=== PATIENT | female | born 1985 | race Caucasian/White ===

== ENCOUNTER 2020-03-31 16:45 | Emergency (ER) | payer BC, SELFPAY ==
--- NOTE | 2020-03-31 16:53 | ED.EXTPRO ---
HPI - Extremity Problem General Chief complaint: Extremity Problem,Nontraumatic Stated complaint: L/arm swollen Time Seen by Provider: 03/31/20 16:55 Source: patient and RN notes reviewed Mode of arrival: ambulatory Limitations: no limitations History of Present Illness HPI Narrative: 34 female presents with concern for pain to the left wrist, lower forearm with a small area of swelling. She denies injury, trauma. Denies any history of injury to that extremity. 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 Reports the pain worsens with touching the first and second digits together and other finger movement. She denies any intervention. She denies any bruising, redness, warmth, open skin MD Complaint: extremity pain Related Data Home Medications Medication Instructions Recorded Confirmed pantoprazole 20 mg PO DAILY 03/31/20 03/31/20 Allergies Allergy/AdvReac Type Severity Reaction Status Date / Time levofloxacin Allergy Intermediate rash Verified 03/22/19 18:04 Review of Systems Review of Systems: Narrative: CONSTITUTIONAL: Denies malaise, chills, sweats, or fever. CARDIOVASCULAR: Denies chest pain, palpitations, o RESPIRATORY: Denies cough or dyspnea. SKIN: Denies lacerations, abrasions rash or itching. MUSCULOSKELETAL: Reports left wrist and lower forearm pain with a small area of swelling NEUROLOGIC: Denies numbness, weakness All systems reviewed & are unremarkable except as noted in HPI and below PMFSH Social History Social History Gender identity (if verbalized by the patient): Female Comments At time of signature, agree with nursing past medical, surgical, social and family history. There is no relevant family history pertinent to the presenting complaint Exam Narrative: Exam Narrative: GENERAL: Well-appearing, well-nourished, and in no acute distress. HEAD: Normocephalic, atraumatic. EYES: PERRLA, conjunctivae clear NECK: Supple. CHEST: Speaks in full sentences. No respiratory distress. HEART: Regular rate and rhythm. Normal and equal peripheral pulses. EXTREMITIES: Left wrist, hand, digits of hand have normal strength and sensation, normal range of motion. Superficial edema without induration, erythema noted to the left lower forearm approximately 6 cm x 4 cm, tender to touch, no erythema or ecchymosis. 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 Normal sensation with sensitivity to light touch and pain. No open wounds, no skin tenting, no devitalized tissue or atrophy, no trophic changes, no obvious deformity, alignment normal, no point tenderness, nearby joints and structures intact. Distal pulses palpable and equal bilaterally, skin warm, dry, pink. Capillary refill less than 3 seconds. SKIN: Warm, dry, no rash. NEURO: Alert and oriented x3. PSYCH: Normal mood and affect Course Course Emergency Course: Patient is aware of diagnosis, understands and agrees to treatment plan. Anticipatory guidance given. Patient agrees to follow-up as directed and is aware of reasons to seek care at the emergency department. Portions of this record may have been created with voice recognition software Vital Signs Vital signs: Vital Signs Temperature 97.6 F 03/31/20 16:55 Pulse Rate 78 03/31/20 16:55 Respiratory Rate 03/31/20 16:55 Blood Pressure 116/65 03/31/20 16:55 Pulse Oximetry 99 03/31/20 16:55 Temperature 97.6 F 03/31/20 16:55 Pulse Rate 78 03/31/20 16:55 Respiratory Rate 03/31/20 16:55 Blood Pressure 116/65 03/31/20 16:55 Pulse Oximetry 99 03/31/20 16:55 Reviewed. MDM - Extremity (Nontraumatic) MDM Narrative Medical decision making narrative: Patients pain is consistent with musculoskeletal etiology. No signs of neurological or vascular compromise on exam. Compartments and tissues are soft without signs of compartment syndrome. Pain is felt appropriate for further evaluation on an outpatient
[2020-03-31 16:55] VITALS: BP 116/65; PULSE 78; RESP 20; TEMP 36.4; O2SAT 99
== END 2020-03-31 17:10 | disposition home or self-care (01) ==
PROVIDERS: Emergency Provider Nurse Practitioner; PCP Registered Nurse
DX: M77.9 Enthesopathy, unspecified (principal); K21.9 Gastro-esophageal reflux disease without esophagitis
CPT/HCPCS: 99213; G0463

== ENCOUNTER 2020-04-13 10:51 | Emergency (ER) | payer OTHER, BC, SELFPAY ==
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
[2020-04-13 11:06] VITALS: BP 89/43; PULSE 77; RESP 18; TEMP 36.3; O2SAT 100
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
[2020-04-13] MEDS: KETOROLAC (*BKC) 60 MG/2 ML VIAL IM (11:40)
[2020-04-13 13:10] VITALS: BP 132/75; PULSE 70; RESP 16; O2SAT 100
[2020-04-13 14:35] VITALS: BP 130/82; PULSE 70; RESP 16; O2SAT 99
== END 2020-04-13 14:30 | disposition home or self-care (01) ==
PROVIDERS: Emergency Provider Emergency Medicine; PCP Registered Nurse
DX: S16.1XXA Strain of muscle, fascia and tendon at neck level, initial encounter (principal); F17.290 Nicotine dependence, other tobacco product, uncomplicated; M47.816 Spondylosis without myelopathy or radiculopathy, lumbar region; V49.40XA Driver injured in collision with unspecified motor vehicles in traffic accident, initial encounter
CPT/HCPCS: 72125; 72128; 72131; 81025; 96372; 99284; J1885

== ENCOUNTER 2020-04-30 13:38 | Outpatient (CLI) | payer BC, SELFPAY ==
--- NOTE | ~2020-04-30 | CT_ITS ---
EXAMINATION: CT brain wo con DATE: 04/30/2020 13:52 INDICATION: Headache. Dizziness. TECHNIQUE: Computed tomography (CT) of the head was performed without intravenous contrast. The mA wa s adjusted according to patient size. Iterative reconstruction technique was employed. The dose-lengt h product was 599.57 mGy-cm. COMPARISON: None FINDINGS: There is no intracranial hemorrhage, acute infarction, or abnormal intracranial mass lesion . The ventricles are normal in size. The orbits are normal. There is mild mucosal thickening in the e thmoid sinuses. The mastoid air cells are normal. IMPRESSION: 1. Normal brain. Reviewed, dictated and finalized at location A. IMPRESSION: 1. Normal brain.
== END 2020-04-30 13:39 ==
PROVIDERS: PCP Registered Nurse; Visit Provider Registered Nurse
DX: R51.9 Headache, unspecified (principal); R47.81 Slurred speech; R41.3 Other amnesia
CPT/HCPCS: 70450